=== PATIENT | female | born 1990 | race African-American/Black ===

== ENCOUNTER 2017-01-10 05:24 | Emergency (ER) | payer OTHER ==
[2017-01-10] MEDS ORDERED: ALLE180T33 PO (05:33)
[2017-01-10] MEDS ORDERED: HYDROCORTISONE 1% CREAM 30 GM TOP ONE (06:45)
[2017-01-10] MEDS ORDERED: diphenhydrAMINE INJ 50MG/ML VIAL (J1200) IV ONE (06:45)
[2017-01-10] MEDS ORDERED: FAMOTIDINE INJ 20MG/2ML VIAL (S0028) IVP ONE ×2 (06:45→07:15)
[2017-01-10] MEDS ORDERED: methylPREDNISolone INJ 125 MG/2 ML VIAL (J2930) IV ONE (06:45)
[2017-01-10] MEDS ORDERED: FAMOTIDINE IV BAG 40 MG in APPROPRIATE DILUENT 1 EA IV ONE (07:00)
[2017-01-10] MEDS ORDERED: HYDR1CRE TOP (07:52)
[2017-01-10] MEDS ORDERED: BENA25TA10 PO (07:52)
[2017-01-10] MEDS ORDERED: PRED20TA PO (07:52)
[2017-01-10] MEDS ORDERED: PEPC1TAB4 PO (07:52)
[2017-01-10 08:13] VITALS: BP 155/90
== END 2017-01-10 08:14 | disposition home or self-care (01) ==
LOC: M ED 06:23
DX: T78.40XA Allergy, unspecified, initial encounter (principal); Y92.9 Unspecified place or not applicable; Y93.9 Activity, unspecified; D55.0 Anemia due to glucose-6-phosphate dehydrogenase [G6PD] deficiency
CPT/HCPCS: 96374; 96375; 99283; J1200; J2930